=== PATIENT | female | born 1960 | race Caucasian/White ===

== ENCOUNTER 2020-07-20 09:00 | Outpatient (RCR) | payer OTHER, SELFPAY ==
--- NOTE | 2020-07-22 09:42 | PCCPR ---
ABSENT- Called in stating she is still having severe back pain. Has spoken with the MD and they are going to order xrays for her tomorrow. She will call tomorrow if she us able to attend class.
--- NOTE | 2020-07-23 08:49 | PCCPR ---
Absent-Back pain. Has an xray on her back today and is having an injection Monday.
--- NOTE | 2020-07-28 16:14 | PCCPR ---
Discharge Jazmine called today states she had a scan of her back and found she has a couple more compression fractures to her back. She is seeing pain management for an injection. She was told to stop coming to Cardiac rehab for now. She feels the back pain is much worse than her heart attack. She also hopes to return to work. Her Referring MD notified of her early dc.
== END 2020-07-28 16:30 | disposition home or self-care (01) ==
LOC: ANHCPREHAB 09:00
PROVIDERS: PCP Internal Medicine
DX: Z95.2 Presence of prosthetic heart valve (principal)
CPT/HCPCS: 93798

== ENCOUNTER 2023-07-27 08:00 | Outpatient (RCR) | payer OTHER, SELFPAY ==
--- NOTE | 2023-05-04 09:37 | OPREHPOC ---
Outpatient Therapy Plan of Care This is a Multidisciplinary Plan of Care that may contain components documented by all disciplines (PT, OT, and ST.) PT Problem 1 PT Problem #1 Knowledge Deficit PT Goal 1 Goal Pt to be IND with issued HEP Target Visit 4 PT Problem 2 PT Problem #2 Pain PT Goal 1 Goal Pt to continue to report back pain no greater than 3/10 in the last week Target Visit 4 PT Problem 3 PT Problem #3 Impaired Functional Mobil PT Goal 1 Goal Pt to improve Tinetti score from 19/28 to 24/28. Target Visit 4 PT Goal 2 Goal Pt to demonstrate a functional lift and carry with 10lb without substitutions Target Visit 4 PT Problem 4 PT Problem #4 Impaired Gait PT Goal 1 Goal Pt to improve 2 min walk distance from 285ft to 350ft. Target Visit 8 PT Goal 2 Goal Pt to demonstrate an equal stride length during gait Target Visit 4
--- NOTE | 2023-05-04 09:38 | PTOPEVAL1 ---
Assessment and note entered by Bryant Alvarez, PT, DPT Evaluation Information Assessment Status Evaluation Diagnosis lumbar fusion Onset 12/28/22 Subjective Information Pt states she has a lumbar fusion on 12/28/22, she reports having to wear a LSO for 3 months. Pt states her pain is gone. She states her biggest limitation is limited mobility, BLE neuropathy, R foot drop, and decreased walking speed. Reported Pain Level Pain Score 1: Self Report Assessment PT Clinical Summary Jazmine presents to therapy today for her initial evaluation following a lumbar fusion on . Today she demonstrates decreased LE weakness R>L, decreased gait speed, gait deviations, and decreased scores on the Tinetti balance assessment placing her at an increased risk of falls. Skilled therapy services are indicated to address the deficits noted above, to improve LE strength, and to improve overall functional mobility. Plan of Care Interventions Electrical Stimulation,Gait Training,Hot Pack/Cold Pack,Manual Therapy,Neuro Re-education,Patient/ Caregiver Educati,Therapeutic Activities, Therapeutic Exercise PT Services Indicated Yes Treatment Frequency and 1x/wk for 4 visits Duration These treatments will address the objective and functional deficits as defined above. The patient will be advanced safely and appropriately in order for the patient to progress towards his/her prior level of function. Additional exercises will be introduced and as well as a comprehensive home exercise program upon discharge, if needed, ?to ensure carryover of functional gains achieved in the clinic. This treatment plan has been reviewed and agreement upon by the patient.
--- NOTE | 2023-06-01 10:58 | PTOPPROG ---
Assessment and note entered by Bryant Alvarez, PT, DPT Evaluation Information Assessment Status Progress Diagnosis lumbar fusion Onset 12/28/22 Subjective Information Pt states overall she is doing pretty good. She states she feels like her balance and strength has improved. Pt reports a 50% improvement to PLOF, she feels like her balance still needs to improve. Assessment PT Clinical Summary Jazmine presents to therapy today for her progress report following 5 visits of skilled therapy to treat the symptoms of her lumbar fusion on 12/28/22. Today she demonstrates progressing LE strength but still decreased from expected, decreased static and dynamic standing balance, and decreased functional mobility towards her baseline. She is making good progress towards her therapy goals. Continuation of skilled therapy services are indicated to address the deficits noted above, to improve LE strength, and to improve overall functional mobility. Plan of Care Interventions Electrical Stimulation,Gait Training,Hot Pack/Cold Pack,Manual Therapy,Neuro Re-education,Patient/ Caregiver Educati,Therapeutic Activities, Therapeutic Exercise PT Services Indicated Yes Treatment Frequency and 1x/wk for 4 visits Duration These treatments will address the objective and functional deficits as defined above. The patient will be advanced safely and appropriately in order for the patient to progress towards his/her prior level of function. Additional exercises will be introduced and as well as a comprehensive home exercise program upon discharge, if needed, ?to ensure carryover of functional gains achieved in the clinic. This treatment plan has been reviewed and agreement upon by the patient.
--- NOTE | 2023-06-30 17:02 | PTOPPROG ---
Assessment and note entered by Bryatn Alvarez, PT, DPT Evaluation Information Assessment Status Progress Diagnosis lumbar fusion Onset 12/28/22 Subjective Information Pt states she is doing pretty well, she states her surgical site feels well healed, she is having pain at the healing fractures above. She states she has been loosing weight rapidly and her doctor is concerned about this. She states d/t her progressing weight loss she has been feeling really weak. Assessment PT Clinical Summary Jazmine presents to therapy today for her progress report following 9 visits of skilled therapy to treat the symptoms of her lumbar fusion on 12/28/22. Today she demonstrates improved gait speed and LE strength but continues to have balance and strength deficits compared to expected . She is making good but slow progress towards her therapy goals. Continuation of skilled therapy services are indicated to address the deficits noted above, to improve LE strength, and to improve overall functional mobility. Plan of Care Interventions Electrical Stimulation,Gait Training,Hot Pack/Cold Pack,Manual Therapy,Neuro Re-education,Patient/ Caregiver Educati,Therapeutic Activities, Therapeutic Exercise PT Services Indicated Yes Treatment Frequency and 1x/wk for 4 visits Duration These treatments will address the objective and functional deficits as defined above. The patient will be advanced safely and appropriately in order for the patient to progress towards his/her prior level of function. Additional exercises will be introduced and as well as a comprehensive home exercise program upon discharge, if needed, ?to ensure carryover of functional gains achieved in the clinic. This treatment plan has been reviewed and agreement upon by the patient.
--- NOTE | 2023-07-27 08:51 | PTOPDC ---
Assessment and note entered by Bryant Alvarez, PT, DPT Evaluation Information Assessment Status Dishcarge Diagnosis lumbar fusion Onset 12/28/22 Subjective Information Pt states it feels like things are going really well. She feels much more confident while walking and has not stumbled in a while. She also feels like she can walk further without a need for a break. She has not had to use the cane when at home. She states she is still unsure of her balance at times. Reported Pain Level Pain Score 1: Self Report Assessment PT Clinical Summary Jazmine presents to therapy today for her progress report following 12 visits of skilled therapy to treat the symptoms of her lumbar fusion on 12/28/22. Today she demonstrates improved gait speed, static balance, and LE strength. She is making consistent progress towards her therapy goals. She will be discharged at this time with instructions to continue her HEP IND.
== END 2023-07-27 09:18 | disposition home or self-care (01) ==
LOC: ANHGOSHPT 08:00
PROVIDERS: PCP Internal Medicine; Visit Provider Neurological Surgery
DX: Z47.89 Encounter for other orthopedic aftercare (principal); Z98.1 Arthrodesis status
CPT/HCPCS: 97110; 97112; 97161; 97530; 97750